=== PATIENT | female | born 1950 | race Caucasian/White ===

== ENCOUNTER 2016-09-16 14:01 | Emergency (ER) | payer OTHER ==
[2016-09-16 15:12] LABS: BASOPHIL 0.4 % (0-2); EOSINOPHIL 2.7 % (0-7); HCT 37.7 % (37.0-47.0); HGB 13.1 g/dl (12.5-16.0); LYMPHOCYTE 20.5 % (15-48); MCH 30.8 pg (25.0-31.0); MCHC 34.7 g/dL (32.0-36.0); MCV 88.7 fL (78.0-100.0); MONOCYTE 5.9 % (0-12); MPV 10.2 fL (6.0-9.5); NEUTROPHIL 70.5 % (41-80); PLT 204 K/uL (150-400); RBC 4.25 M/uL (4.20-5.40); RDW 13.5 % (11.5-14.0); WBC 7.8 K/uL (4.0-10.5)
[2016-09-16 15:32] LABS: ALBUMIN 3.6 g/dL (3.4-4.8); BILIRUBIN - TOTAL 0.5 mg/dL (0.1-1.0); CREATININE 0.5 mg/dL (0.5-1.0); POTASSIUM 3.8 mmol/L (3.5-5.1); TOTAL PROTEIN 6.6 g/dL (6.4-8.3)
[2016-09-16 16:17] LABS: BILIRUBIN NEGATIVE (NEGATIVE); BLOOD NEGATIVE Ery/uL (NEGATIVE); CLARITY CLEAR (CLEAR); COLOR STRAW (YELLOW); GLUCOSE (U) 3+ mg/dL (NORMAL); KETONE (U) NEGATIVE (NEGATIVE); LEUKOCYTES TRACE Leu/uL (NEGATIVE); NITRITE NEGATIVE (NEGATIVE); PROTEIN NEGATIVE (NEGATIVE); SPECIFIC GRAVITY <=1.005 (1.001-1.030); pH 6.5 (5.0-9.0)
[2016-09-16 16:31] LABS: BACTERIA TRACE
[2016-09-16 16:32] LABS: YEAST PRESENT
== END 2016-09-16 18:33 | disposition home or self-care (01) ==
LOC: FER 14:01
PROVIDERS: Internal Medicine
DX: M75.22 Bicipital tendinitis, left shoulder (principal); I10 Essential (primary) hypertension; E11.9 Type 2 diabetes mellitus without complications; Z79.84 Long term (current) use of oral hypoglycemic drugs
CPT/HCPCS: 36415; 80053; 81001; 85025; J0702